=== PATIENT | male | born 1995 | race Two or more races ===

== ENCOUNTER 2025-08-15 19:14 | Emergency (ER) | payer SELFPAY ==
[~2025-08-15] VITALS: Ht 175.3 cm; Wt 82.6 kg
--- NOTE | 2025-08-15 20:21 | ED.PDOC ---
HPI Comments HPI: This is a 30 year old male presenting to the ED with chief complaint of chest pain. Patient reports that he has been experiencing left sided constant non-radiating chest pain since this morning. Patient relays that he has had similar pain in the past after he drank ETOH heavily. Patient admits to drinking about a 12 pack of beer for the past 2 days. Patient denies any N/V/D, abdominal pain, SOB, dizziness, or headache. Past Medical History: Alcohol abuse Past Surgical History: Denies Social History: Denies smoking or drug use, heavy ETOH use Medications: None Allergies: NKDA JONES; L CP, NONRADIATING SINCE THIS MORNING AFTER ALCOHOL. TACHYCARDIA HPI: Poor Historian. REVIEW OF SYSTEMS: CONSTITUTIONAL: Denies acute: fever, diaphoresis, chills, generalized weakness. HEAD: Denies acute: headache, photophobia Eyes: Denies acute: Double vision, vision loss, eye pain, eye discharge. EARS: Denies acute: tinnitus, hearing loss, ear discharge, ear pain, THROAT: Denies acute: sore throat, swelling, difficulty swallowing , pain with swallowing, change in voice. NECK: Denies acute: neck pain, neck swelling, stiff neck. HEART: Denies acute : LUNGS: Denies acute: SOB, wheezing, cough, hemoptysis ABDOMEN: Denies acute: abdominal pain, Nausea, Vomiting, diarrhea, melena , hematemesis, hematochezia SKIN: Denies acute: rash, redness, lesions, itchiness. EXTREMITIES: Denies acute: calf pain, numbness, tingling, weakness, denies pain in extremity. Denies acute: Low back pain. Neuro: Denies acute: focal neurological deficit, motor or sensory focal neurological deficit, tremors, seizure like activity, confusion, dizziness, change in mental status, loss of bowel or bladder function, cauda equina like symptoms. : Denies acute: dysuria, hematuria, flank pain, increase in urinary frequency. PSYCH: Denies acute: hallucination, suicidal ideation, homicidal ideation. PHYSICAL EXAM: General: ----moderate----acute distress, awake and alert. Head: normocephalic, atraumatic. No raccoon's eyes, no chadwick sign. Neck: supple, trachea is midline, no swelling. Throat: Normal phonation. Eyes:, no erythema, no purulent discharge, no proptosis, no icterus. Heart: regular tachycardic, no significant murmur appreciated. Lungs: no apparent respiratory distress, Able to speak in full sentences. No wheezing, no rhonchi, no crackles. No stridors Clear to auscultation bilaterally. Abdomen: non tender to palpation, non distended, soft, no guarding, no rebound, + bowel sounds. Neuro: Awake, Alert, oriented to name, self, situation, follows commands GCS=15. Speech is normal. Skin: no petechia, no purpura, no cyanosis, non-pale, not jaundice. Lower extremities: --no - Pitting edema no deformity, no focal swelling, no calf TTP. Makes eye contact. moves all four extremities. Face: no apparent facial droop. Ambulating in the ED independently. ED COURSE: DISCLAIMER: This medical document was created using an electronic medical record system with voice recognition software and computerized dictation system. Although this document has been carefully reviewed, there might still be some phonetic and typographical errors. Occasional wrong-word or "sound-alike" substitutions may have occurred due to the inherent limitations of voice recognition software. These areas are purely typographical due to imperfections of the software programs and do not reflect any compromise in the patient's medical care. Please read the chart carefully and recognize, using context, where these substitutions have occurred. Chief Complaint: Chest Pain Time Seen by MD: 19:24 Reviewed Notes: Medications, Allergies Allergies: Coded Allergies: NO KNOWN ALLERGIES (Unverified , 08/15/25) Information Source: Patient Mode of Arrival: Ambulatory EKG EKG : Pulse Rate (adult): 116 Cardiac Rhythm: ST Was a procedure done? Was a procedure done?: No CP Differential Dx Differential Diagnosis: N/A Differential Diagnosis: Other (DDX include renal disease, thyroid disease, electrolyte abnormality, increased salt intake, medications non-compliance, undiagnosed HTN, Hypertensive crisis, hypertensive urgency., drug toxicity.) Differential Diagnosis: Other (Ddx include but not limitied to gastritis, musculoskeletal pain, radiculopathy, atypical chest pain, dissection, aneurysm, ACS, unstable angina, hiatal hernia, GERD, anxiety, costochondritis, PE, pneumothroax, neoplasm, cardiac ischemia, drug abuse, anemia.) X-Ray, Labs, Meds, VS Vital Signs Date Time Temp Pulse Resp B/P (MAP) Pulse Ox O2 Delivery O2 Flow Rate FiO2 08/16/25 03:22 98.2 91 16 158/121 (133) 99 98.2 08/16/25 01:16 100 149/109 08/16/25 00:45 98.4 95 20 159/111 (127) 100 98.4 08/15/25 22:20 98.4 117 16 152/105 (121) 96 98.4 08/15/25 22:14 107 08/15/25 21:34 Room Air 0 08/15/25 20:55 98.2 11 22 150/107 (121) 98 98.2 08/15/25 20:29 92 08/15/25 20:21 116 08/15/25 19:21 116 08/15/25 19:18 98.2 139 20 173/97 99 98.2 Lab Test 08/16/25 02:12 08/15/25 20:06 08/15/25 19:25 Range/Units Urine Opiates Screen Neg NEGATIVE Urine Fentanyl Screen Neg NEGATIVE Urine Barbiturates Screen Neg NEGATIVE Urine Phencyclidine Screen Neg NEGATIVE Urine Amphetamines Screen Pos NEGATIVE Urine Benzodiazepines Screen Neg NEGATIVE Urine Cocaine Screen Pos NEGATIVE Urine Cannabinoids Screen Neg NEGATIVE Troponin I High Sensitivity < 3 L < 3 L </=54 ng/L White Blood Count 9.6 4.4-10.8 10^3/uL Red Blood Count 5.60 4.5-5.90 10^6/uL Hemoglobin 17.8 H 13.5-17.5 g/dL Hematocrit 51.7 41.0-53.0 % Mean Corpuscular Volume 92.3 80.0-100.0 fL Mean Corpuscular Hemoglobin 31.7 28.0-32.0 pg Mean Corpuscular Hemoglobin Concent 34.3 32.0-36.0 g/dL Red Cell Distribution Width 13.4 11.8-14.3 % Platelet Count 279 140-450 10^3/uL Mean Platelet Volume 8.3 6.9-10.8 fL Neutrophils (%) (Auto) 72.7 37.0-80.0 % Lymphocytes (%) (Auto) 20.5 10.0-50.0 % Monocytes (%) (Auto) 6.2 0.0-12.0 % Eosinophils (%) (Auto) 0.2 0.0-7.0 % Basophils (%) (Auto) 0.4 0.0-2.0 % Neutrophils # (Auto) 7.0 1.6-8.6 10 ^3/uL Lymphocytes # (Auto) 2.0 0.4-5.4 10 ^3/uL Monocytes # (Auto) 0.6 0-1.3 10 ^3/uL Eosinophils # (Auto) 0 0-0.8 10 ^3/uL Basophils # (Auto) 0 0-0.2 10 ^3/uL Nucleated Red Blood Cells 0.4 % Sodium Level 140 136-145 mmol/L Potassium Level 3.3 L 3.5-5.1 mmol/L Chloride Level 98 98-107 mmol/L Carbon Dioxide Level 30 20-31 mmol/L Anion Gap 12 5-15 Blood Urea Nitrogen 7 L 9-23 mg/dL Creatinine 0.82 0.700-1.30 mg/dL Glomerular Filtration Rate Calc 122 >90 mL/min BUN/Creatinine Ratio 8.5 L 10.0-20.0 Serum Glucose 124 H 74-106 mg/dL Calcium Level 9.6 8.7-10.4 mg/dL Magnesium Level 2.0 1.6-2.6 mg/dL Total Bilirubin 1.0 0.2-1.0 mg/dL Aspartate Amino Transferase (AST) 23 13-40 U/L Alanine Aminotransferase (ALT) 28 7-40 U/L Alkaline Phosphatase 100 46-116 U/L Total Protein 7.9 5.7-8.2 g/dL Albumin 4.9 H 3.2-4.8 g/dL Lipase 27 12-53 U/L [address] [address] Ph: [phone] DIAGNOSTIC IMAGING Diagnostic Imaging Report : [id number] Signed PATIENT: ADAN JONES ACCT: [id number] UNIT: [id number] : 1995 LOC: ER ROOM / BED: / AGE / SEX: 30 / M ADM STATUS: REG ER SERVICE 16 ORDERING PHYSICIAN: FLORI FERGUSON DO PROCEDURE(s): CXRP - CHEST PORTABLE REASON: CHEST PAIN ORDER NUMBER(s): [id number], ACCESSION NUMBER(s): [id number] CHEST RADIOGRAPH Indication: CHEST PAIN Technique: Single frontal view of the chest was obtained Comparison: None FINDINGS: Lines and Tubes: None Lungs: No focal consolidation. Pleura: No effusion. No pneumothorax. Cardiomediastinal contours: Unremarkable Bones: No acute osseous abnormality. IMPRESSION: No acute cardiopulmonary disease. ATED BY: MINE IRENE DO DICTATED DATE/TIME: 08/15/252031 SIGNED BY: MINE IRENE DO SIGNED DATE/TIME: 08/15/252031 CC: Time of 1ST Reevaluation: 21:19 Reevaluation 1ST: Unchanged Time of 2ND Reevaluation: 03:35 Reevaluation 2ND: Resolved Patient Education/Counseling: Diagnosis, Treatment Family Education/Counseling: No Family Present Comments MDM: patient presented with the above HPI.----chest pain--workup was initiated. patient was found with the above mentioned diagnosis. the following medications were ordered: please refer to order lists of meds and tests obtained by myself Dr. Ferguson. Patient ED course and VS have been stabilized. Patient has been reassessed in the ED and remained in a stable condition. Pertinent incidental findings were discussed with the patient and/or family. Patient/family voices understanding and is agreeable with plan. Patient has been observed in the ED adequate length of time to insure improvement/stability. Escalation of care considered: Consideration of escalation to observation or admission The tachycardia and hypertension is likely due to the cocaine and methamphetamine that he denied initially during our evaluation. Monitoring blood pressure at home at least 3 times a day. Patient was DISCHARGED home in a stable condition. All the reports of any imaging studies that were ordered by myself were reviewed by myself. Departure 1 Departure Time of Disposition: 22:06 Impression: Primary Impression: Chest pain Additional Impressions: Alcohol abuse Palpitations Cocaine abuse Methamphetamine abuse Disposition: HOME / SELF CARE / HOMELESS Condition: Stable Additional Instructions: Additional instructions: Please read all instructions provided in this packet carefully. You MUST follow-up with your primary care/family doctor in 1 to 2 days. If you are unable to see your primary care/family doctor, please return to our emergency room for re-assessment and re-evaluation in 1 to 2 days. Return to the emergency room here in our facility or to the nearest ER [facility] if your symptoms change or worsen. CONSULTATIONS: you MUST Follow-up for consultation as soon as possible with: Dr. green in 1-2 days. Please call for appointment You MUST call the consultants office yourself to make an appointment. You may need to arrange that through your insurance and/or your primary/family doctor. If you are unable to see the window covering sales consultant in 1 to 2 days, you must return to our emergency room (or any other ER of your choice) for re-assessment and re- evaluation. Adequate fluid hydration. Although you have been discharged from the Emergency Department, this does not mean that you have a "clean bill of health". No definitive diagnosis for your symptoms has been made today. It is possible that you are in the process of developing a serious illness. This is why you must return to the ED without fail if any new or worsening symptoms develop. Seek help regarding your alcohol addiction. You must abstain from methamphetamine and cocaine and any drugs because that can kill you. Discharged With: Self Critical Care Note Critical Care Time?: Yes (35 min-critical care time only) Critical care comment: DUE TO A HIGH PROBABILITY OF CLINICALLY SIGNIFICANT, LIFE THREATENING DETERIORATION, THE PATIENT REQUIRED MY HIGHEST LEVEL OF PREPAREDNESS TO INTERVENE EMERGENTLY AND I PERSONALLY SPENT THIS CRITICAL CARE TIME DIRECTLY AND PERSONALLY MANAGING THE PATIENT. THIS CRITICAL CARE TIME INCLUDED OBTAINING A HISTORY; EXAMINING THE PATIENT; PULSE OXIMETRY; ORDERING AND REVIEW OF STUDIES; ARRANGING URGENT TREATMENT WITH DEVELOPMENT OF A MANAGEMENT PLAN; EVALUATION OF PATIENT'S RESPONSE TO TREATMENT; FREQUENT REASSESSMENT; AND, DISCUSSIONS WITH OTHER PROVIDERS. THIS CRITICAL CARE TIME WAS PERFORMED TO ASSESS AND MANAGE THE HIGH PROBABILITY OF IMMINENT, LIFE-THREATENING DETERIORATION THAT COULD RESULT IN MULTI-ORGAN FAILURE. IT WAS EXCLUSIVE OF SEPARATELY BILLABLE PROCEDURES AND TREATING OTHER PATIENTS AND TEACHING TIME. PLEASE SEE MY OTHER SECTIONS AND THE REST OF THE NOTE FOR FURTHER INFORMATION ON PATIENT ASSESSMENT AND TREATMENT. Heart Score Heart Score: Heart Score Response (Comments) Value History Slightly Suspicious 0 EKG Normal 0 Age <45 0 Risk Factors No known risk factors 0 Troponin Normal limit 0 Total 0 I personally scribed for FLORI FERGUSON DO ([email or web address]) on 08/15/25 at 20:21. Electronically submitted by Devin Lara ([email or web address]). I personally scribed for FLORI FERGUSON DO ([email or web address]) on 08/15/25 at 21:34. Electronically submitted by Devin Lara ([email or web address]). FLORI FERGUSON DO Aug 15, 2025 20:21
--- NOTE | 2025-08-15 20:34 | DVH ---
CHEST RADIOGRAPH Indication: CHEST PAIN Technique: Single frontal view of the chest was obtained Comparison: None FINDINGS: Lines and Tubes: None Lungs: No focal consolidation. Pleura: No effusion. No pneumothorax. Cardiomediastinal contours: Unremarkable Bones: No acute osseous abnormality. IMPRESSION: No acute cardiopulmonary disease.
[2025-08-15 20:39] LABS: Hematocrit 51.7 % (41.0-53.0); Hemoglobin 17.8 g/dL (13.5-17.5); Mean Corpuscular Hemoglobin 31.7 pg (28.0-32.0); Mean Corpuscular Volume 92.3 fL (80.0-100.0); Nucleated Red Blood Cells % 0.4 %
[2025-08-15 20:49] LABS: Alanine Aminotransferase 28 U/L (7-40); Alkaline Phosphatase 100 U/L (46-116); Anion Gap 12 (5-15); BUN/Creatinine Ratio 8.5 (10.0-20.0); Calcium 9.6 mg/dL (8.7-10.4); Carbon Dioxide 30 mmol/L (20-31); Sodium 140 mmol/L (136-145); Total Protein 7.9 g/dL (5.7-8.2)
[2025-08-15 20:50] LABS: Bilirubin, Total 1.0 mg/dL (0.2-1.0)
[2025-08-15 20:56] LABS: Albumin 4.9 g/dL (3.2-4.8); Blood Urea Nitrogen 7 mg/dL (9-23); Chloride 98 mmol/L (98-107); Glucose 124 mg/dL (74-106); Potassium 3.3 mmol/L (3.5-5.1)
[2025-08-15] MEDS: LORazepam 2MG/ML-1ML VIAL IV ONE (21:05)
[2025-08-15] MEDS: SODIUM CHLORIDE 0.9% 1,000 ML IV ONE ×2 (21:05→23:40)
[2025-08-15] MEDS: THIAMINE HCL 100 MG TAB PO ONE (21:05)
[2025-08-15] MEDS: MAGNESIUM SULFATE 1GM/100ML 100 ML IV ONE (21:23)
--- NOTE | 2025-08-15 22:15 | ECG ---
[facility] Test Date: 2025-08-15 Test Time: 22:14:05 Pat Name: ADAN JONES Department: ED Room: Gender: M Medical Attendant: : 1995 Requested By: FLORI FERGUSON Order Number: [id number] Reading MD: Escobar Beavers Measurements Intervals [place] Rate: 107 P: 36 RI: 121 QRS: 81 QRSD: 87 T: -15 QT: 329 QTc: 439 Interpretive Statements Sinus tachycardia Borderline repolarization abnormality Electronically Signed On 08-18-2025 19:24:46 PST by Escobar Beavers Please click the below link to view image of tracing.
--- NOTE | 2025-08-15 22:45 | ECG ---
[facility] Test Date: 2025-08-15 Test Time: 20:29:29 Pat Name: ADAN JONES Department: ED Room: Gender: M Can Capper: : 1995 Requested By: FLORI FERGUSON Order Number: [id number] Reading MD: Escobar Beavers Measurements Intervals [place] Rate: 92 P: 28 ME: 118 QRS: 86 QRSD: 87 T: -22 QT: 336 QTc: 416 Interpretive Statements Sinus rhythm Borderline short ME interval Borderline repolarization abnormality Electronically Signed On 08-18-2025 19:23:47 PST by Escobar Beavers Please click the below link to view image of tracing.
[2025-08-16] MEDS: LABETALOL HCL 20 MG/4 ML VL IV ONE (01:16)
[2025-08-16 03:22] VITALS: BP 158/121; PULSE 91; RESP 16; TEMP 98.2; O2SAT 99
[2025-08-16 03:31] LABS: Barbiturate Scree,Urine Neg (NEGATIVE); Opiate Scree,Urine Neg (NEGATIVE)
[2025-08-16 03:32] LABS: Amphetamine Screen, Urine Pos (NEGATIVE); Benzodiazephine Screen, Urine Neg (NEGATIVE); Cocaine Screen, Urine Pos (NEGATIVE); Phencyclidine Screen, Urine Neg (NEGATIVE)
[2025-08-16 03:33] LABS: Cannabinoid Screen, Urine Neg (NEGATIVE)
== END 2025-08-16 03:55 | disposition home or self-care (01) ==
LOC: ER 19:14
DX: R07.9 Chest pain, unspecified (principal); R00.2 Palpitations; F10.10 Alcohol abuse, uncomplicated; F14.10 Cocaine abuse, uncomplicated; F15.10 Other stimulant abuse, uncomplicated; Z79.899 Other long term (current) drug therapy; Y90.9 Presence of alcohol in blood, level not specified
CPT/HCPCS: 36415; 71045; 80053; 80307; 83690; 83735; 84484; 85025; 93005; 96361; 96365; 96375; 99285; J2060; J3475; J7030